=== PATIENT | female | born 1960 ===

== ENCOUNTER 2018-03-06 09:41 | Emergency (ER) | payer BC ==
[2018-03-06 09:41] VITALS: BMI 31.3
[2018-03-06 09:57] VITALS: RESP 18; TEMP 97.8
--- NOTE | 2018-03-06 10:01 | ED PDOC ---
Arrival/HPI - General Chief Complaint: Lower Extremity Problem/Injury Time Seen by Provider: 03/06/18 09:45 Historian: Patient - History of Present Illness Narrative History of Present Illness (Text): 03/06/18 10:49 57 y/o female with PMH of chronic leg pain, herniated discs, and sciatica presents to the ED c/o left lower back and left leg pain x 2 days. Pain is sharp and shoots down her posterior and lateral left leg. Associated intermittent paresthesias of the left lower leg. All of these symptoms are typical of her sciatic pain, but she presents today because she no longer wants to see her pain management doctor. She has received multiple epidural injections that help for a short period of time, last one a few months ago. Pain is worse with standing for long periods of time and the leg occasionally gives out when walking for too long. Pt has been taking 600mg ibuprofen every 6 hours without relief, last dose this morning 7 am. Pt is looking to establish followup with orthopedics at this time. Denies fever, chills, urinary symptoms, bowel or bladder incontinence, saddle anesthesias, abdominal pain, N/V, diarrhea, constipation, chest pain, SOB, weakness, or any other associated symptoms. Past Medical History - Provider Review Nursing Documentation Reviewed: Yes - Past Medical History Past Medical History: No Previous - Cardiac Hx Pacemaker: No - Neurological Hx Paralysis: No - Hematological/Oncological Hx Blood Transfusions: No Hx Blood Transfusion Reaction: No - Musculoskeletal/Rheumatological Hx Herniated Disk: Yes (lower back) - Psychiatric Hx Depression: No Hx Emotional Abuse: No Hx Physical Abuse: No Hx Substance Use: No - Surgical History Hx Appendectomy: Yes Hx Section: Yes ( x 1) - Anesthesia Hx Anesthesia Reactions: No Hx Malignant Hyperthermia: No - Suicidal Assessment Feels Threatened In Home Enviroment: No Family/Social History - Physician Review Nursing Documentation Reviewed: Yes Family/Social History: No Known Family HX Smoking Status: Never Smoked Hx Alcohol Use: Yes (social occasions) Hx Substance Use: No Allergies/Home Meds Allergies/Adverse Reactions: Allergies ciprofloxacin Allergy (Verified 03/06/18 09:56) RASH Penicillins Allergy (Verified 03/06/18 09:56) RASH Home Medications: Home Meds Medication Instructions Recorded Confirmed Losartan [Cozaar] 100 mg PO DAILY 03/06/18 03/06/18 Review of Systems - Physician Review All systems were reviewed & negative as marked: Yes - Review of Systems Constitutional: Normal. absent: Fatigue, Weight Change, Fevers Eyes: Normal. absent: Vision Changes, Photophobia ENT: Normal. absent: Sore Throat, Sinus Congestion Respiratory: Normal. absent: SOB, Cough Cardiovascular: Normal. absent: Chest Pain, Palpitations, Syncope Gastrointestinal: Normal. absent: Abdominal Pain, Stool Changes, Nausea, Vomiting, Appetite Changes Genitourinary Female: Normal. absent: Dysuria, Frequency, Vaginal Bleeding, Vaginal Discharge Musculoskeletal: Arthralgias (left leg), Back Pain (left lower) Skin: Normal. absent: Rash Neurological: Gait Changes (secondary to pain). absent: Headache, Dizziness, Focal Weakness, Disequilibrium Endocrine: Normal Hemo/Lymphatic: Normal Psychiatric: Normal Physical Exam Vital Signs Reviewed: Yes Temperature: Afebrile Blood Pressure: Hypertensive Pulse: Regular Respiratory Rate: Normal Appearance: Positive for: Well-Appearing, Non-Toxic, Comfortable Pain Distress: None Mental Status: Positive for: Alert and Oriented X 3 - Systems Exam Head: Present: Atraumatic, Normocephalic Pupils: Present: PERRL Extroacular Muscles: Present: EOMI Conjunctiva: Present: Normal Mouth: Present: Moist Mucous Membranes Neck: Present: Normal Range of Motion. No: Meningeal Signs, MIDLINE TENDERNESS, Paraspinal Tenderness Respiratory/Chest: Present: Clear to Auscultation, Good Air Exchange. No: Respiratory Distress, Accessory Muscle Use Cardiovascular: Present: Regular Rate and Rhythm, Normal S1, S2 Abdomen: Present: Normal Bowel Sounds. No: Tenderness, Distention, Peritoneal Signs, Rebound Back: Present: Midline Tenderness (lumbar spine). No: CVA Tenderness Upper Extremity: Present: Normal Inspection, Normal ROM, NORMAL PULSES, Neurovascularly Intact, Capillary Refill < 2s. No: Cyanosis, Edema Lower Extremity: Present: Normal Inspection, NORMAL PULSES, Tenderness (left lateral leg over hip and thigh), Neurovascularly Intact (Full sensation, pulse 2/2), Capillary Refill < 2 s, Other (Distal pulses 2/2 bilaterally). No: Edema, CALF TENDERNESS, Cyanosis, Normal ROM (decreased secondary to pain; full passive ROM), Johana's Sign, Swelling, Erythema, Deformity, Temperature Abnormalties Neurological: Present: GCS=15, CN II-XII Intact, Speech Normal, Motor Func Grossly Intact, Normal Sensory Function. No: Gait Normal (difficulty walking secondary to pain) Skin: Present: Warm, Dry, Normal Color. No: Rashes, Erythematous, Induration, Hot, Cold, Pale, Abscess Psychiatric: Present: Alert, Oriented x 3, Normal Insight, Normal Concentration, Normal Affect, Normal Mood Medical Decision Making ED Course and Treatment: 09:45 Initial Plan: * CT Lumbar Spine * Left Leg Venous Duplex * Tylenol * Valium Prelim reading of duplex is negative for DVT 12:52 4 units of regular insulin and IVF bolus ordered for glucose 371. Patient states she was told her sugar was elevated during her last bloodwork a few months ago, but otherwise denies history of diabetes. Bloodwork shows patient is not in DKA. 13:13 Ct negative for acute pathology. Severe bulging discs at multiple levels. CT result reviewed with Dr. Mclaughlin, who recommends outpatient followup. Patient continues to complain of pain, IV Toradol ordered. 15:10 Fingerstick now 199. Case reviewed again with Dr. Mclaughlin, who agrees with plan of care and disposition of discharge home with outpatient followup. Patient states she will followup with her PMD Dr. Kay tomorrow. Diagnostic testing results and plan of care discussed with patient. Strict instructions given regarding prescription use, importance of followup, and signs/symptoms to return to ER including worsening pain, weakness, or any other new/worsening symptoms. Pt verbalized understanding of discussion. Patient is A&Ox3, ambluating with steady gait, with vital signs stable for discharge. - Lab Interpretations I have reviewed the lab results: Yes - RAD Interpretation Narrative RAD Interpretations (Text): 03/06/18 13:[address]: FINDINGS: VERTEBRAE: Grade 1 anterolisthesis of L4 on L5. No fracture. Normal alignment. DISCS/SPINAL CANAL/NEURAL FORAMINA: L1-2: Broad-based disc bulge resulting in mild central canal stenosis L2-3: Broad-based disc bulge resulting in moderate to severe central canal stenosis L3-4: Broad-based disc bulge resulting in moderate to severe central canal stenosis. Severe right neural foraminal stenosis. L4-5: Uncovering of the disc due to anterolisthesis. Broad-based disc bulge deforming and possibly compressing the ventral thecal sac something in very severe central canal stenosis L5-S1: Broad based disc bulge wrist in mild central canal stenosis. Severe bilateral neural foraminal stenoses. PARASPINAL SOFT TISSUES: Unremarkable. OTHER FINDINGS: None. IMPRESSION: No acute fracture. Multilevel degenerative changes, as above described, worst at L4-5 with areas severe central canal stenosis with deformation of the thecal sac. Senior Erp Consultant: Radiologist - Medication Orders Current Medication Orders: 03/06/18 11:03 Active Medications Discontinued Medications Acetaminophen (Tylenol 325mg Tab) 975 mg PO STAT STA Stop: 03/06/18 10:21 Last Admin: 03/06/18 10:38 Dose: 975 mg Diazepam (Valium) 5 mg PO STAT STA; Protocol Stop: 03/06/18 10:21 Last Admin: 03/06/18 10:38 Dose: 5 mg Lidocaine (Lidoderm) 1 ea TD STAT STA Stop: 03/06/18 10:23 Last Admin: 03/06/18 10:39 Dose: 1 ea Disposition/Present on Arrival - Present on Arrival Any Indicators Present on Arrival: No History of DVT/PE: No History of Uncontrolled Diabetes: No Urinary Catheter: No History Surgical Site Infection Following: None - Disposition Have Diagnosis and Disposition been Completed?: Yes Diagnosis: Hyperglycemia, Chronic leg pain Disposition: HOME/ ROUTINE Disposition Time: 15:00 Patient Plan: Discharge Condition: IMPROVED Discharge Instructions (ExitCare): Hyperglycemia, Adult, The ABCs of Diabetes, Sciatica Exercises, Diabetes and Diet Additional Instructions: Increase fluids Low carbohydrate diet Tramadol every 8 hours as needed for severe pain Ibuprofen every 6 hours as needed for pain Lidoderm patches daily, 12 hours on 12 hours off Followup with primary doctor tomorrow Followup with orthopedics within 2 days Return to ER with any new/worsening symptoms Prescriptions: Lidocaine 5% [Lidoderm] 1 ea TD DAILY PRN #30 patch PRN Reason: Pain, Mild (1-3) traMADol [Ultram] 50 mg PO Q8H PRN #9 tab PRN Reason: Pain, Mild (1-3) Referrals: Rachel Kay MD [Family Provider] - Follow up with primary Bill Sweeney DO [Staff Provider] - Follow up with primary Forms: [employer] (Vietnamese)
[2018-03-06] MEDS ORDERED: Lidocaine 5% Patch TD STA (10:22)
[2018-03-06 11:50] LABS: URINE APPEARANCE CLEAR (CLEAR); URINE BILIRUBIN NEGATIVE (NEGATIVE); URINE BLOOD NEGATIVE (NEGATIVE); URINE COLOR LIGHT YELLOW (YELLOW); URINE GLUCOSE (UA) >=1000 mg/dL (NEGATIVE); URINE LEUKOCYTE ESTERASE NEGATIVE Leu/uL (NEGATIVE); URINE PROTEIN NEGATIVE mg/dL (<30 mg/dL); URINE UROBILINOGEN 0.2 E.U./dL (<1 E.U./dL)
[2018-03-06 12:09] LABS: BASO # 0.01 K/mm3 (0.0-2.0); BASO % 0.1 % (0.0-3.0); EOS # 0.2 (0.0-0.7); EOS % 2.1 % (1.5-5.0); GRAN # 6.2 (1.4-6.5); GRAN % 73.6 % (50.0-68.0); HEMOGLOBIN 13.4 g/dL (12.0-16.0); LYMPH # 1.5 (1.2-3.4); MEAN CELL VOLUME 87.1 fl (80.0-105.0); MEAN CORPUSCULAR HEMOGLOBIN 29.3 pg (25.0-35.0); MEAN CORPUSCULAR HGB CONC 33.6 g/dl (31.0-37.0); MEAN PLATELET VOLUME 9.9 fl (7.0-11.0); MONO # 0.5 (0.1-0.6); MONO % 6.2 % (1.0-6.0); RBC 4.58 10^6/uL (3.5-6.1); RED CELL DISTRIBUTION WIDTH 12.8 % (11.5-14.5); WHITE BLOOD COUNT 8.4 10^3/uL (4.5-11.0)
--- NOTE | 2018-03-06 12:23 | CT ---
Date of service: 03/06/2018 PROCEDURE: CT Lumbar Spine without contrast HISTORY: midline lumbar tenderness COMPARISON: CT scan of the abdomen pelvis dated 12/11/2013. TECHNIQUE: Axial computed tomography images were obtained of the lumbar spine without the use of intravenous contrast. Coronal and sagittal reformatted images were created and reviewed. Radiation dose: Total exam DLP = 831.62 mGy-cm. This CT exam was performed using one or more of the following dose reduction techniques: Automated exposure control, adjustment of the mA and/or kV according to patient size, and/or use of iterative reconstruction technique. FINDINGS: VERTEBRAE: Grade 1 anterolisthesis of L4 on L5. No fracture. Normal alignment. DISCS/SPINAL CANAL/NEURAL FORAMINA: L1-2: Broad-based disc bulge resulting in mild central canal stenosis L2-3: Broad-based disc bulge resulting in moderate to severe central canal stenosis L3-4: Broad-based disc bulge resulting in moderate to severe central canal stenosis. Severe right neural foraminal stenosis. L4-5: Uncovering of the disc due to anterolisthesis. Broad-based disc bulge deforming and possibly compressing the ventral thecal sac something in very severe central canal stenosis L5-S1: Broad based disc bulge wrist in mild central canal stenosis. Severe bilateral neural foraminal stenoses. PARASPINAL SOFT TISSUES: Unremarkable. OTHER FINDINGS: None. IMPRESSION: No acute fracture. Multilevel degenerative changes, as above described, worst at L4-5 with areas severe central canal stenosis with deformation of the thecal sac.
[2018-03-06 12:32] LABS: ALB/GLOB RATIO 1.5 (1.1-1.8); ALBUMIN 4.4 g/dL (3.0-4.8); ALT/SGPT 35 U/L (7-56); AST/SGOT 22 U/L (14-36); BLOOD UREA NITROGEN 13 mg/dL (7-21); CALCIUM 9.7 mg/dL (8.4-10.5); GFR NON-AFRICAN AMERICAN > 60
[2018-03-06] MEDS ORDERED: Insulin Regular 1 UNITS/0.01 ML ML SC STA (12:39)
[2018-03-06] MEDS ORDERED: Sodium Chloride 0.9% 1,000 ML IV STA (12:39)
[2018-03-06 15:51] VITALS: BP 155/82; PULSE 88; O2SAT 99
--- NOTE | 2018-03-07 12:29 | US ---
PROCEDURE: Left lower extremity venous US HISTORY: Leg pain and swelling. Evaluate for DVT. PHYSICIAN(S): Corbin Proctor MD. TECHNIQUE: Duplex sonography and color-flow Doppler with graded compression were used to evaluate the deep venous system of the left lower extremity. FINDINGS: The visualized deep venous system of the left lower extremity is sonographically normal and compressible. Normal wave forms and augmentation are seen. There is no sonographic evidence for deep venous thrombosis in the visualized segments of the left lower extremity. IMPRESSION: 1. No sonographic evidence for deep venous thrombosis in the visualized segments of the left lower extremity.
== END 2018-03-06 15:35 | disposition home or self-care (01) ==
LOC: ED 09:41
DX: G89.29 Other chronic pain (principal); M79.605 Pain in left leg; R73.9 Hyperglycemia, unspecified
CPT/HCPCS: 72131; 80053; 81003; 82948; 85025; 93971; 96361; 96374; 99284; J1885; J7030

== ENCOUNTER 2018-04-08 15:02 | Emergency (ER) | payer BC ==
[2018-04-08 15:36] VITALS: RESP 18; TEMP 98; O2SAT 96; BMI 31.8
--- NOTE | 2018-04-08 15:36 | ED PDOC ---
Arrival/HPI - General Chief Complaint: Abnormal Skin Integrity Time Seen by Provider: 04/08/18 15:06 Historian: Patient - History of Present Illness Narrative History of Present Illness (Text): 04/08/18 15:31 58yo female with past medical history of hypertension and diabetes who present with complaint of abscess to her right posterior leg. Patient states she have had the abscess for a week now and was placed on antibiotics for a week. States it drained only blood at home, saw Dr. Kay today who referred her to the Emergency department for I&D. she denies fever, chills, any other complaint. Past Medical History - Provider Review Nursing Documentation Reviewed: Yes - Infectious Disease Hx of Infectious Diseases: None - Past Medical History Past Medical History: No Previous - Cardiac Hx Hypertension: Yes Hx Pacemaker: No - Neurological Hx Paralysis: No - Endocrine/Metabolic Hx Diabetes Mellitus Type 2: Yes - Hematological/Oncological Hx Blood Transfusions: No Hx Blood Transfusion Reaction: No - Musculoskeletal/Rheumatological Hx Herniated Disk: Yes (lower back) - Psychiatric Hx Depression: No Hx Emotional Abuse: No Hx Physical Abuse: No Hx Substance Use: No - Surgical History Hx Appendectomy: Yes Hx Section: Yes ( x 1) - Anesthesia Hx Anesthesia Reactions: No Hx Malignant Hyperthermia: No - Suicidal Assessment Feels Threatened In Home Enviroment: No Family/Social History - Physician Review Nursing Documentation Reviewed: Yes Family/Social History: Unknown Family HX Smoking Status: Never Smoked Hx Alcohol Use: Yes (social occasions) Hx Substance Use: No Allergies/Home Meds Allergies/Adverse Reactions: Allergies ciprofloxacin Allergy (Verified 03/06/18 09:56) RASH Penicillins Allergy (Verified 03/06/18 09:56) RASH Home Medications: Home Meds Medication Instructions Recorded Confirmed Losartan [Cozaar] 100 mg PO DAILY 03/06/18 04/08/18 Celecoxib [celeBREX] 1 tab PO DAILY 04/08/18 04/08/18 MetFORMIN [glucoPHAGE] 1 tab PO BID 04/08/18 04/08/18 Review of Systems - Physician Review All systems were reviewed & negative as marked: Yes - Review of Systems Constitutional: Normal Eyes: Normal ENT: Normal Respiratory: Normal Cardiovascular: Normal Gastrointestinal: Normal Genitourinary Female: Normal Musculoskeletal: Normal Skin: Abscess (Right leg) Neurological: Normal Endocrine: Normal Hemo/Lymphatic: Normal Psychiatric: Normal Physical Exam Vital Signs Reviewed: Yes Vital Signs Temp Pulse Resp BP Pulse Ox 04/08/18 15:22 98.0 F 84 18 132/88 96 Temperature: Afebrile Blood Pressure: Normal Pulse: Regular Respiratory Rate: Normal Appearance: Positive for: Well-Appearing, Non-Toxic, Comfortable Pain Distress: None Mental Status: Positive for: Alert and Oriented X 3 - Systems Exam Head: Present: Atraumatic, Normocephalic Pupils: Present: PERRL Extroacular Muscles: Present: EOMI Conjunctiva: Present: Normal Mouth: Present: Moist Mucous Membranes Neck: Present: Normal Range of Motion Respiratory/Chest: Present: Clear to Auscultation, Good Air Exchange. No: Respiratory Distress, Accessory Muscle Use Cardiovascular: Present: Regular Rate and Rhythm, Normal S1, S2. No: Murmurs Abdomen: No: Tenderness, Distention, Peritoneal Signs Back: Present: Normal Inspection Upper Extremity: Present: Normal Inspection. No: Cyanosis, Edema Lower Extremity: Present: Normal Inspection. No: Edema Neurological: Present: GCS=15, CN II-XII Intact, Speech Normal Skin: Present: Warm, Dry, Normal Color. No: Rashes Psychiatric: Present: Alert, Oriented x 3, Normal Insight, Normal Concentration Disposition/Present on Arrival - Present on Arrival Any Indicators Present on Arrival: No History of DVT/PE: No History of Uncontrolled Diabetes: No Urinary Catheter: No History of Decub. Ulcer: No History Surgical Site Infection Following: None - Disposition Have Diagnosis and Disposition been Completed?: Yes Diagnosis: Abscess Disposition: HOME/ ROUTINE Disposition Time: 16:30 Patient Plan: Discharge Patient Problems: Current Active Problems Problem Status Onset Abscess Acute Condition: STABLE Discharge Instructions (ExitCare): Skin Abscess, Abscess Incision and Drainage Additional Instructions: Return to Emergency department in 2days for wound check Follow up with your Doctor Referrals: Rachel Kay MD [Staff Provider] - Follow up with primary Forms: [employer] (Macedonian) - Incision & Drainage Of Abscess Anesthesia: Lidocaine 1% (20), With Epi Prep Used: Betadine Procedure: Incised W/Scalpel Blade#: (11), Drained Pus (Blood drained), Probed To Break Up Loculations, Cultures Obtained And Sent To Lab
[2018-04-08 16:41] VITALS: BP 128/78; PULSE 78
== END 2018-04-08 16:52 | disposition home or self-care (01) ==
LOC: ED 15:02
DX: L02.415 Cutaneous abscess of right lower limb (principal); E11.9 Type 2 diabetes mellitus without complications; I10 Essential (primary) hypertension

== ENCOUNTER 2018-04-11 14:40 | Outpatient (CLI) | payer BC | END 2018-04-11 14:41 | disposition home or self-care (01) | LOC: RAD 14:40 | DX: M51.36 Other intervertebral disc degeneration, lumbar region (principal) ==

== ENCOUNTER 2018-07-08 13:13 | Outpatient (CLI) | payer BC | END 2018-07-08 13:14 | disposition home or self-care (01) | LOC: RAD 13:14 ==